=== PATIENT | female | born 1965 | race Caucasian/White ===

== ENCOUNTER 2018-06-02 06:50 | Inpatient (IN) | payer MEDICAID ==
[~2018-06-02] VITALS: Ht 160 cm; Wt 90.7 kg
[2018-06-02] MEDS ORDERED: LACTATED RINGERS 1,000 ML IV SCH (07:30)
[2018-06-02] MEDS ORDERED: CEFOXITIN SODIUM 1 G/VIAL IV ONE (08:30)
[2018-06-02] MEDS ORDERED: GEMF600T4 PO (08:47)
[2018-06-02] MEDS ORDERED: ALBU6.7H9 IH (08:47)
[2018-06-02] MEDS ORDERED: HYDR-4001 PO (08:47)
[2018-06-02] MEDS ORDERED: MONT10TA21 PO (08:47)
[2018-06-02] MEDS ORDERED: OMEP20CA10 PO (08:47)
[2018-06-02] MEDS ORDERED: ATEN-42 PO (08:47)
[2018-06-02] MEDS ORDERED: GABA-531 PO (08:47)
[2018-06-02] MEDS ORDERED: HYDR25TA PO (08:47)
[2018-06-02] MEDS ORDERED: NEOSTIGMINE METHYLSULFATE 1MG/ML 10 ML VIAL ONE ×2 (09:17→11:32)
[2018-06-02] MEDS ORDERED: FENTANYL CITRATE/PF 50MCG/ML 2ML VIAL ONE (09:17)
[2018-06-02] MEDS ORDERED: PROPOFOL 200MG/20ML VIAL IV ONE (09:17)
[2018-06-02] MEDS ORDERED: MIDAZOLAM HCL 2 MG/2 ML VIAL ONE (09:17)
[2018-06-02] MEDS ORDERED: ROCURONIUM BROMIDE 10MG/ML VIAL 5ML IV ONE (09:17)
[2018-06-02] MEDS ORDERED: GLYCOPYRROLATE 0.2 MG/ML 2ML VIAL ONE ×2 (09:18→11:35)
[2018-06-02] MEDS ORDERED: ONDANSETRON HCL 4MG/2ML INJ ONE (09:21)
[2018-06-02] MEDS ORDERED: DEXAMETHASONE 4MG/ML 1ML VIAL ONE (09:21)
[2018-06-02] MEDS ORDERED: ONDANSETRON HCL 4MG/2ML INJ IV PRN ×2 (09:30→12:45)
[2018-06-02] MEDS ORDERED: MEPERIDINE HCL/PF 25MG/ML CPJ IV PRN (09:30)
[2018-06-02] MEDS ORDERED: HYDROMORPHONE HCL/PF 2MG/ML CPJ IV PRN ×6 (09:30→15:15)
[2018-06-02] MEDS ORDERED: LABETALOL 5MG/ML SYR 20 MG/4 ML SYRINGE IV PRN (09:30)
[2018-06-02] MEDS ORDERED: SKIN ADHESIVE 0.7 GM EA TOP ONE (09:32)
[2018-06-02] MEDS ORDERED: BUPIVACAINE HCL/PF 0.5% (5MG/ML) 10ML ONE (09:33)
[2018-06-02] MEDS ORDERED: LIDOCAINE HCL 1% 20ML VIAL (Pyxis) INJ ONE (09:44)
[2018-06-02] MEDS ORDERED: SODIUM CHLORIDE 0.45% 1,000 ML IV SCH (12:45)
[2018-06-02] MEDS ORDERED: MONTELUKAST SODIUM 10MG TABLET PO SCH ×2 (12:45→17:00)
[2018-06-02] MEDS ORDERED: MEDICATION NOT ON FORMULARY EA (Atenolol 25 MG) PO SCH (12:45)
[2018-06-02] MEDS ORDERED: ALBUTEROL 6.7GM HFA INHALER INH PRN (12:45)
[2018-06-02] MEDS ORDERED: OMEPRAZOLE 20MG CAPSULE EXTENDED RELEASE PO SCH (12:45)
[2018-06-02 14:54] VITALS: BP 137/85
[2018-06-02] MEDS ORDERED: ALBUTEROL (0.083%) 2.5MG/3ML NEB HHN PRN (15:30)
[2018-06-02] MEDS ORDERED: OMEPRAZOLE 20MG CAPSULE EXTENDED RELEASE PO PRN (15:45)
[2018-06-02 16:00] VITALS: BP 127/77
[2018-06-02] MEDS: ATENOLOL 25MG TABLET PO SCH (16:30)
[2018-06-02] MEDS ORDERED: GEMFIBROZIL 600 MG PO SCH (17:00)
[2018-06-02] MEDS: GEMFIBROZIL 600MG TABLET PO SCH (17:32)
[2018-06-02 20:00] VITALS: BP 122/67
[2018-06-02] MEDS ORDERED: MEDICATION NOT ON FORMULARY EA (Gabapentin 300 MG) PO SCH (21:00)
[2018-06-02] MEDS ORDERED: GABAPENTIN 300MG CAPSULE PO SCH (21:00)
[2018-06-03] VITALS: BP 107/51
[2018-06-03 04:00] VITALS: BP 105/54
[2018-06-03 07:12] LABS: BASOPHILS % 0.2 % (0.0-2.0); HEMATOCRIT. 35.1 % (36.0-48.0); HEMOGLOBIN. 12.1 g/dL (12.0-16.0); LYMPHOCYTES % 12.4 % (20.0-50.0); MEAN CORPUSCULAR HEMOGLOBIN 30.9 pg (28.0-32.0); MEAN CORPUSCULAR VOLUME 89.4 fL (81.0-99.0); MEAN PLATELET VOLUME 9.4 fl (7.4-10.4); MONOCYTES % 10.9 % (2.0-8.0); NEUTROPHILS % 76.5 % (40.0-76.0); PLATELET 248 x1000/uL (130-400); RED BLOOD CELL COUNT 3.93 mill/uL (4.2-5.4); RED CELL DISTRIBUTION WIDTH 13.3 % (11.6-14.6)
[2018-06-03 08:00] VITALS: BP 93/54
[2018-06-03] MEDS: GEMFIBROZIL 600MG TABLET PO SCH (08:48)
[2018-06-03] MEDS: ATENOLOL 25MG TABLET PO SCH (08:51)
[2018-06-03] MEDS ORDERED: HYDROCHLOROTHIAZIDE 25MG TABLET PO SCH (09:00)
[2018-06-03 10:12] VITALS: BP 93/54
== END 2018-06-03 11:26 | disposition home or self-care (01) | DRG 263 ==
LOC: OR 06:50 → 6EST 06:51
PROVIDERS: ADMIT Specialist; ATTEND Specialist
PROC: 0FT44ZZ Resection of Gallbladder, Percutaneous Endoscopic Approach (ICD-10-PCS; principal; 2018-06-02 09:30)
DX: K80.10 Calculus of gallbladder with chronic cholecystitis without obstruction (principal); E78.00 Pure hypercholesterolemia, unspecified; I10 Essential (primary) hypertension; J45.909 Unspecified asthma, uncomplicated; Z53.1 Procedure and treatment not carried out because of patient's decision for reasons of belief and group pressure; Z98.51 Tubal ligation status
CPT/HCPCS: 36415; 88304; J0694; J1100; J1170; J2250; J2405; J2704; J2710; J3010; J3490